=== PATIENT | female | born 1980 | race Caucasian/White ===

== ENCOUNTER → 2018-05-26 | Outpatient (CLI) | payer OTHER ==
--- NOTE | 2018-05-26 13:43 | XR ---
Lumbosacral spine HISTORY: Low back pain 5 views of the lumbosacral spine No comparisons There is a levoscoliosis centered at L3. Posterior lumbar fusion is noted at L4-S1. Laminectomies are present at L5, intervertebral spacing material present at L5-S1. Multilevel spondylosis is present. There is loss of disc height at multiple intervertebral levels. IMPRESSION: Postop changes, degenerative disc disease, scoliosis.
== END | disposition home or self-care (01) ==
LOC: RADXRMAIN 09:53
PROVIDERS: ATTEND Family Medicine
DX: M41.9 Scoliosis, unspecified (principal); M51.36 Other intervertebral disc degeneration, lumbar region
CPT/HCPCS: 72110

== ENCOUNTER → 2018-12-31 | Outpatient (CLI) | payer MEDICARE ==
[2018-12-28 14:47] VITALS: BMI 38.2
[2018-12-31 11:18] VITALS: BP 133/71; PULSE 118; RESP 18
--- NOTE | 2018-12-31 11:47 | P.CONS ---
History of Present Illness - Reason for Consult Consult date: 12/31/18 - Chief Complaint Lower back and legs pain - History of Present Illness This is a 38-year-old lady with history of chronic lower back pain with radiation to the lower extremities down to the knee level. The patient states that her right foot goes numb on her when she stands or walks for too long. The patient had back surgery with L5-S1 fusion in 2009. The back pain has been getting worse lately. By MRI the patient has neural foraminal stenosis on the right side of the L5-S1 level and severe facet arthropathy at the L4 5 level which contributes to bilateral foraminal stenosis at this level too. The patient denies any bowel or bladder dysfunction or any weakness in the lower extremities. The pain occasionally wakes her up at night. There are no significant weight changes lately. The patient failed to respond to physical therapy previously. Review of Systems Cardiovascular: Denies chest pain, Denies shortness of breath Respiratory: Denies cough Musculoskeletal: Reports as per HPI Neurological: Reports as per HPI Past Medical History Past Medical History: Diabetes Mellitus, Hyperlipidemia, Hypertension, Musculoskeletal Disorder, Osteoarthritis (OA) Additional Past Medical History / Comment(s): holter monitor recently due to recent EKG showed sinus tach., bone spur L5, low back pain down both legs History of Any Multi-Drug Resistant Organisms: None Reported Past Surgical History: Adenoidectomy, Appendectomy, Back Surgery, Tonsillectomy Additional Past Surgical History / Comment(s): spinal fusion L5-S1 Past Anesthesia/Blood Transfusion Reactions: Postoperative Nausea & Vomiting (PONV) Smoking Status: Never smoker - Past Family History Mother Family Medical History: No Reported History Medications and Allergies Home Medications Medication Instructions Recorded Confirmed Type Aspirin 81 mg PO DAILY 10/30/18 12/28/18 History Cholecalciferol [Vitamin D3] 2,000 unit PO DAILY 10/30/18 12/28/18 History Cinnamon Bark [Cinnamon] 1,000 mg PO BID 10/30/18 12/28/18 History Cyclobenzaprine [Flexeril] 10 mg PO TID PRN 10/30/18 12/28/18 History Metoprolol Succinate (ER) [Toprol 50 mg PO DAILY 10/30/18 12/28/18 History Xl] Multivit with Calcium,Iron,Min 1 each PO DAILY 10/30/18 12/28/18 History [Women's Multivitamin] Naproxen Sodium [Aleve] 220 mg PO BID PRN 10/30/18 12/28/18 History Potassium Chloride [Klor-Con 20] 40 meq PO TID 10/30/18 12/28/18 History Simvastatin [Zocor] 10 mg PO HS 10/30/18 12/28/18 History Spironolactone [Aldactone] 25 mg PO BID 10/30/18 12/28/18 History Turmeric Root Extract [Turmeric] 500 mg PO DAILY 10/30/18 12/28/18 History metFORMIN HCL [Glucophage] 1,000 mg PO BID 10/30/18 12/28/18 History metFORMIN HCL [Glucophage] 500 mg PO 1200 10/30/18 12/28/18 History Furosemide [Lasix] 20 mg PO DAILY 12/28/18 12/28/18 History Lisinopril [Zestril] 2.5 mg PO DAILY 12/28/18 12/28/18 History Allergies Allergy/AdvReac Type Severity Reaction Status Date / Time sulfamethoxazole Allergy Rash/Hives Verified 12/28/18 14:41 [From Bactrim] trimethoprim [From Bactrim] Allergy Rash/Hives Verified 12/28/18 14:41 Physical Exam Vitals: Vital Signs Pulse Resp BP Pulse Ox 12/31/18 11:12 118 H 18 133/71 99 - Constitutional General appearance: obese - EENT Eyes: PERRLA - Respiratory Respiratory: bilateral: CTA - Cardiovascular Rhythm: regular - Neurologic Neuro exam of the lower extremities showed decreased but symmetrical muscle strength to 4 out of 5 bilaterally. Normal deep tendon reflexes bilaterally. Straight leg raising test negative bilaterally. Billy's test negative bilaterally. She has positive tenderness in the lumbar paravertebral area bilaterally. She has well-healed scar from her previous back surgery about 2 inches in length. Neurologic: CNII-XII intact - Psychiatric Psychiatric: A&O x's 3, appropriate affect, intact judgment & insight Results Results: MRI on the lumbar spine which was done in July 2018 showed right foraminal stenosis with thickened L5 nerve root partially compressed by independence per at the L5-S1 level on the right side and also it showed severe L4 5 facet arthropathy with bilateral foraminal stenosis. Assessment and Plan Plan: This is a pleasant 38-year-old lady with history of failed back surgery syndrome and lower back pain with radiation to the lower extremities down to the knee level and numbness in the right foot. The MRI showed neural foraminal stenosis at the L5-S1 level on the right side and severe facet arthropathy the L4 5 level with bilateral neuroforaminal stenosis at this level. Neuro exam of the lower extremities is within normal limits. The patient has the following diagnoses: Failed back surgery syndrome Lumbar spondylosis without myelopathy Right lumbar radiculopathy Neuro foraminal stenosis The patient may benefit from getting caudal epidural steroid injection with lysis of adhesions under fluoroscopic guidance however this does not help the patient's pain then we might need to try transforaminal epidural steroid injection at the L4 5 and L5-S1 level on the right side. Due to her severe facet arthropathy she might also benefit from getting lumbar medial branch block above the fusion level under fluoroscopic guidance. We will start by doing caudal epidural steroid injection. The procedure was explained to the patient and her questions were answered. The patient is agre eable to the above-mentioned procedure. The patient has history of diabetes but she denies taking any anticoagulants other than aspirin 81 mg a day. I thank you for the referral
== END | disposition home or self-care (01) ==
LOC: PNWHC3 10:36
PROVIDERS: ATTEND Anesthesiology
DX: G89.29 Other chronic pain (principal); M48.07 Spinal stenosis, lumbosacral region; M96.1 Postlaminectomy syndrome, not elsewhere classified; M47.26 Other spondylosis with radiculopathy, lumbar region; M46.86 Other specified inflammatory spondylopathies, lumbar region; E11.9 Type 2 diabetes mellitus without complications; E78.5 Hyperlipidemia, unspecified; I10 Essential (primary) hypertension; M19.90 Unspecified osteoarthritis, unspecified site; Z90.89 Acquired absence of other organs; Z98.890 Other specified postprocedural states; Z79.82 Long term (current) use of aspirin; Z79.84 Long term (current) use of oral hypoglycemic drugs; Z79.1 Long term (current) use of non-steroidal anti-inflammatories (NSAID); Z98.1 Arthrodesis status; Z88.2 Allergy status to sulfonamides; Z79.899 Other long term (current) drug therapy
CPT/HCPCS: 99201

== ENCOUNTER 2019-01-14 08:12 | Day surgery (SDC) | payer MEDICARE ==
[2019-01-11 09:46] VITALS: BMI 38.4
[2019-01-14 09:37] VITALS: TEMP 99.3
[2019-01-14] MEDS: LACTATED RINGERS 1,000 ML IV SCH ×2 (09:50→10:14)
[2019-01-14] MEDS ORDERED: LIDOCAINE 1% 20 ML VIAL (10MG/ML) FOR IV START INTRADERMA ONE (09:51)
[2019-01-14 10:05] LABS: Glucose,Whole Blood 146 mg/dL (75-99)
--- NOTE | 2019-01-14 10:37 | P.PCN ---
Date of Procedure: 01/14/19 Procedure(s) Performed: PREOP DIAGNOSIS: 1- Lumbar postlaminectomy syndrome. POSTOP DIAGNOSIS:1- Lumbar postlaminectomy syndrome. PROCEDURE: 1-Caudal epidural steroid injection with epidurolysis and epidurogram under fluoroscopic guidance. 2-caudal epidurogram. ANESTHESIA: Local with 1% lidocaine 3 ml ,and moderate sedation, with Versed 2 mg and fentanyl 100 g. EBL: Minimal. PROCEDURE INDICATION: The patient with post-laminectomy syndrome with low back pain and radiculopathy radiating down in both legs, here for a caudal epidural steroid injection with epidurolysis. PROCEDURE DESCRIPTION: The patient was seen and identified in the preoperative area. Risks, benefits, complications, and alternatives were discussed with the patient. The patient agreed to proceed with the procedure and signed the consent. IV was started, and vital signs were stable. Patient was taken to the OR and time out was completed. The patient was placed in the prone position on procedure table and a pillow was placed under the abdomen to reduce lumbar lordosis. The lumbosacral area was prepped and draped in the usual sterile fashion. Vital signs were closely monitored during the procedure. lateral view and the anterior-posterior plates of the sacrum were identified with infiltration of the area overlying the sacral hiatus with 1% lidocaine .A 17 gauge RK epidural needle was used to advance through the sacral hiatus into the caudal epidural space. Omnipaque 180 dye. 2cc was injected and the position of the needle was verified to be in the midline. A Racz catheter was introduced into the epidural space and was advanced towards the L5-S1 inte rspace under direct fluoroscopic guidance. Multiple passes were made with the catheter for lysis of epidural adhesions. Depo-Medrol 40 mg with 3ml of preservative free Lidocaine 1% and 5 ml of preser vative free normal saline was injected slowly. Additional spread was seen to L4 under fluoroscopy. The needle and the catheter were withdrawn intact. EPIDUROGRAM: Omnipaque 180 mg dye 2 ml was injected with spread of the dye into the caudal epidural space and with spread cutoff at L5 prior to epidurolysis. Post epidurolysis dye 2 ml was injected and spread was seen to L3-4.There was further spread of the solution together with the dye above the L3 COMPLICATIONS: None. DISPOSITION / PLANS: The patient was placed in a supine position and transferred to the recovery area in a stable condition for observation and was discharged from the recovery room after meeting discharge criteria. Home discharge instructions given to the patient by the staff. The patient was reexamined prior to discharge. The patient will schedule a follow up in the clinic in 2-4 weeks.
[2019-01-14 10:42] VITALS: RESP 18
[2019-01-14] MEDS ORDERED: LACTATED RINGERS 1,000 ML IV ONE (10:55)
[2019-01-14 10:57] VITALS: BP 110/78; PULSE 93
--- NOTE | 2019-01-14 11:28 | FL ---
EXAMINATION TYPE: FL guided pain mgmt statistic DATE OF EXAM: 01/14/2019 HISTORY: Flouroscopy time 7 seconds of fluoroscopy provided. IMPRESSION: 1. Fluoroscopy time.
== END 2019-01-14 11:12 | disposition home or self-care (01) ==
LOC: ORPAIN 08:12
PROVIDERS: ATTEND Specialist
DX: M96.1 Postlaminectomy syndrome, not elsewhere classified (principal); M54.16 Radiculopathy, lumbar region; E11.9 Type 2 diabetes mellitus without complications; Z88.1 Allergy status to other antibiotic agents; Z88.2 Allergy status to sulfonamides
CPT/HCPCS: 81025; 62264; J2250; J1030; J3010; Q9966; C1894; 62323; 99152

== ENCOUNTER 2019-01-28 05:56 | Day surgery (SDC) | payer MEDICARE ==
[2019-01-26 11:32] VITALS: BMI 37.9
[~2019-01-28 05:56] MED LIST: LACTATED RINGERS 1,000 ML IV SCH
[2019-01-28 06:40] VITALS: TEMP 98.1
[2019-01-28] MEDS ORDERED: LIDOCAINE 1% 20 ML VIAL (10MG/ML) FOR IV START INTRADERMA ONE (06:40)
[2019-01-28 06:43] LABS: Glucose,Whole Blood 137 mg/dL (75-99)
--- NOTE | 2019-01-28 07:24 | P.PCN ---
Date of Procedure: 01/28/19 Procedure(s) Performed: PREOP DIAGNOSIS: 1- Lumbar postlaminectomy syndrome. POSTOP DIAGNOSIS:1- Lumbar postlaminectomy syndrome. PROCEDURE: 1-Caudal epidural steroid injection with epidurolysis and epidurogram under fluoroscopic guidance. 2-caudal epidurogram. ANESTHESIA: Local with 1% lidocaine 3 ml ,and moderate sedation, with Versed 2 mg and fentanyl 100 g. EBL: Minimal. PROCEDURE INDICATION: The patient with post-laminectomy syndrome with low back pain and radiculopathy radiating down in both legs, here for a caudal epidural steroid injection with epidurolysis. PROCEDURE DESCRIPTION: The patient was seen and identified in the preoperative area. Risks, benefits, complications, and alternatives were discussed with the patient. The patient agreed to proceed with the procedure and signed the consent. IV was started, and vital signs were stable. Patient was taken to the OR and time out was completed. The patient was placed in the prone position on procedure table and a pillow was placed under the abdomen to reduce lumbar lordosis. The lumbosacral area was prepped and draped in the usual sterile fashion. Vital signs were closely monitored during the procedure. lateral view and the anterior-posterior plates of the sacrum were identified with infiltration of the area overlying the sacral hiatus with 1% lidocaine .A 17 gauge RK epidural needle was used to advance through the sacral hiatus into the caudal epidural space. Omnipaque 180 dye. 2cc was injected and the position of the needle was verified to be in the midline. A Racz catheter was introduced into the epidural space and was advanced towards the L5-S1 int erspace under direct fluoroscopic guidance. Multiple passes were made with the catheter for lysis of epidural adhesions. Depo-Medrol 40 mg with 3ml of preservative free Lidocaine 1% and 5 ml of prese rvative free normal saline was injected slowly. Additional spread was seen to L5 under fluoroscopy. The needle and the catheter were withdrawn intact. EPIDUROGRAM: Omnipaque 180 mg dye 2 ml was injected with spread of the dye into the caudal epidural space and with spread cutoff at L5 prior to epidurolysis. Post epidurolysis dye 2 ml was injected and spread was seen to L3-4.There was further spread of the solution together with the dye above the L3 COMPLICATIONS: None. DISPOSITION / PLANS: The patient was placed in a supine position and transferred to the recovery area in a stable condition for observation and was discharged from the recovery room after meeting discharge criteria. Home discharge instructions given to the patient by the staff. The patient was reexamined prior to discharge. The patient will schedule a follow up in the clinic in 2-4 weeks.
[2019-01-28] MEDS ORDERED: IV FLUID CONTINUATION 1,000 ML IV ONE (07:28)
[2019-01-28 07:39] VITALS: BP 92/68; PULSE 101; RESP 16
--- NOTE | 2019-01-28 10:26 | FL ---
EXAMINATION TYPE: FL guided pain mgmt statistic DATE OF EXAM: 01/28/2019 FLUOROSCOPY Fluoroscopy time of 15 seconds was used during caudal injection. 2 image/s document/s the procedure.
== END 2019-01-28 07:56 | disposition home or self-care (01) ==
LOC: ORPAIN 05:56
PROVIDERS: ATTEND Specialist
DX: M96.1 Postlaminectomy syndrome, not elsewhere classified (principal); M54.16 Radiculopathy, lumbar region
CPT/HCPCS: 81025; 62264; J2250; J1030; J3010; Q9966; 62323; 99152

== ENCOUNTER → 2019-02-18 | Outpatient (CLI) | payer MEDICARE ==
[2019-02-18 12:38] VITALS: BP 120/88; PULSE 126; RESP 16
--- NOTE | 2019-02-18 13:25 | P.PN ---
Progress Note - Text Progress Note Date: 02/18/19 This a 38-year-old female with a chief complaint of low back pain and radicular pain in her right lower extremity. Since her initial visit she had 2 caudal epidurals with lysis of adhesion area she did not report any relief from those procedures. She still has persistent low back pain, numbness and tingling in her right foot mostly on the plantar aspect. She does report some weakness in her right lower extremity as well that is stable and not progressing. She had a L5-S1 fusion done in 2009 in [place], she's followed up with that surgeon last month and has a follow-up appointment to be determined in the next few weeks. She had flexion extension x-rays and did not have any hardware malposition or pseudoarthrosis. Her VAS today is a 4-6 out of 10 in severity mostly in her low back with frequent radicular pain into her right lower extremity. She denies any bowel or bladder incontinence, any gait disturbances In addition to above, 13-point review of systems is also negative for chest pain, shortness of breath, changes in vision, changes in hearing, new onset weakness, abdominal pain, diarrhea, extreme fatigue, malaise, fever, skin changes, homicidal or suicidal ideation, or bowel or bladder incontinence. Vital Signs: Reviewed in EMR Gen: WDWN, AAOx3, NAD HEENT: NCAT, EOMI, hearing grossly normal Pulm: resp unlabored Abd: soft, NT, ND Neck: supple, trachea midline ROM in flexion lumbar spine: Pain and 60 ROM in extension lumbar spine: Pain at greater than -10 Lumbar paravertebral tenderness: + Facet loading: ++ bilateral SI joint tenderness: Negative bilateral Billy's test: Negative by the Straight leg raise: +RLE 20 degrees Lower extremity: decreased ROM dorsiflexion/plantarflexion strength, hip flexion/extension, and knee flexion/extension secondary to pain Neuro: CN II-XII grossly intact, muscle strength lower extremities PRESERVED Imaging: MRI on the lumbar spine which was done in July 2018 showed right foraminal stenosis with compressed L5 nerve root, and also it showed severe L3- L4, L4-5 facet arthropathy with bilateral foraminal stenosis. Assessment: 1. Lumbar failed back syndrome 2. lumbar radiculopathy 3. lumbar spondylosis without myelopathy Plan: 1. Explanation: Opioid and psychological risk scores were reviewed. Diagnoses, prognoses, and multiple treatment options including but not limited to physical therapy, interventional therapies, adjuvant medical therapies, narcotic medication therapies, and surgery were discussed with the patient and all questions were answered to the patient's satisfaction. 2. Opioid agreement: None 3. Counseling: The patient was counseled extensively on SMOKING CESSATION, BODY MASS INDEX, EXERCISE. Specifically, the patient was instructed regarding the importance of smoking cessation, obesity, and exercise in the context of both chronic pain and overall health. 4. Procedures: Bilateral L3-L4, L4-L5 facet joint injections. 5. Consultations: None 6. Investigations: None 7. Medications: None 8. Disposition: I reviewed her most recent MRI in detail with her. She does have severe facet arthropathy at L3-L4 and L4-L5 could be contributing to her low back pain. She had no relief with the caudal epidurals even her MRI shows severe impingement of the L5 nerve root. She had an EMG done back in November we do not have the results with us she was told it was normal. She is going to follow up with her neurosurgeon in [place] and will let us know what he recommends. If she is unable to get in to see him, I did discuss that I could refer to a spine surgeon For evaluation PQRS measures: 1-Patient's medications are documented in the chart. 2-Tobacco use is negative, counseling not given 3-Patient has not had a pneumococcal vaccine. 4-Advanced care planning discussed, patient unable to give. 5-Opioid contract signed with the patient. No opiates prescribed 6-Pain positive, follow-up visit or procedure scheduled 7-Patient's blood pressure measured and documented, and WNL. 8-Patient's weight was measured, and body mass index ABOVE the normal limits, and counseling was done. Patient instructed to follow up with PCP. 9-Patient WAS NOT identified as an unhealthy alcohol user.
== END ==
LOC: PNWHC3 12:09
PROVIDERS: ATTEND Anesthesiology
DX: M47.26 Other spondylosis with radiculopathy, lumbar region (principal); M96.1 Postlaminectomy syndrome, not elsewhere classified
CPT/HCPCS: 99211

== ENCOUNTER 2019-03-15 08:21 | Day surgery (SDC) | payer MEDICARE ==
[2019-03-10 15:16] VITALS: BMI 38.2
[2019-03-15 08:40] VITALS: TEMP 99.7
[2019-03-15] MEDS ORDERED: LIDOCAINE 1% 20 ML VIAL (10MG/ML) FOR IV START INTRADERMA ONE (08:50)
[2019-03-15] MEDS ORDERED: LACTATED RINGERS 1,000 ML IV ONE (08:50)
[2019-03-15 09:05] LABS: Glucose,Whole Blood 156 mg/dL (75-99)
--- NOTE | 2019-03-15 10:05 | P.PCN ---
Date of Procedure: 03/15/19 Surgeon: Saadia Salgado Pathology: none sent Condition: stable Disposition: PACU Description of Procedure: PREOPERATIVE DIAGNOSIS : 1- Lumbar spondylosis with Facet Arthropathy without myelopathy . 2- Lumber degenerative disc disease3-postlaminectomy pain syndrome POSTOPERATIVE DIAGNOSIS: 1- Lumbar spondylosis with Facet Arthropathy without myelopathy . 2- Lumber degenerative disc disease3-postlaminectomy pain syndrome PROCEDURE: Diagnostic bilateral L2 3, L3 4, and L4 5 medial branch block under fluoroscopy ANESTHESIA: Local with 1% lidocaine; IV moderate conscious sedation with Versed 2 mg . EBL: Negligible COMPLICATION: None. PROCEDURE INDICATION: Chronic low back pain secondary to Facet arthropathy and postlaminectomy pain syndrome unresponsive to conservative treatment. The procedure was done above her fusion level which is at the L4 5 and L5-S1 levels. PROCEDURE DESCRIPTION: the patient was seen and identified in the preop holding area , risks and benefits and possible complications of the procedure and alternatives were discussed with the patient, and the patient agreed to proceed with the procedure and signed the consent. IV was started and vital signs monitored during the procedure and fluoroscopy was used to maximize the benefit and accuracy of the needle placement, sedation was given to decrease patient anxiety, patient was taken to the procedure room and placed in prone position vital signs monitored. The patient was brought into the procedure room and placed in prone position. Skin was prepped with Chloraprep and draped in a sterile manner. Lidocaine 1% was used to numb the skin up at the target points that were chosen as follows: for the L1, L2 and L3 medial branches the target points were the connection between the transverse process and the superior to go process of L2, L3 and L4 respectively on the oblique views of fluoroscopy. I used 22-gauge 3-1/2 inch Quincke spinal needles for this procedure and after contacting bone at the target points mentioned above I injected 1 mL of a mixture of Kenalog 40 mg +5 MLS of Marcaine 0.5% PF . Patient tolerated procedure well. At the end of the procedure the needles removed and a bandage applied after the skin was cleaned the cleaning solution. patient was then taken to the recovery room in stable condition and monitored in the recovery room for 20-30 minutes and discharged home in stable condition after discharge criteria met .
[2019-03-15] MEDS ORDERED: IV FLUID CONTINUATION 1,000 ML IV ONE ×2 (10:07)
[2019-03-15 10:12] VITALS: PULSE 97
--- NOTE | 2019-03-15 10:14 | FL ---
EXAMINATION TYPE: FL guided pain mgmt statistic DATE OF EXAM: 03/15/2019 CLINICAL HISTORY: Low back pain. TECHNIQUE: Fluoroscopy. COMPARISON: None. FINDINGS: Fluoroscopic guidance was provided during pain relief procedure performed by Dr. Salgado . A total of 8 seconds of fluoroscopic time was utilized during the procedure and 3 spot images are a cquired. Images acquired shows needle localization at multiple levels of the lumbar spine. IMPRESSION: As Above.
[2019-03-15 10:27] VITALS: BP 104/72; RESP 18
[2019-03-15] MEDS ORDERED: LACTATED RINGERS 1,000 ML IV SCH (10:45)
== END 2019-03-15 10:35 | disposition home or self-care (01) ==
LOC: ORPAIN 08:21
PROVIDERS: ATTEND Anesthesiology
DX: G89.29 Other chronic pain (principal); M47.816 Spondylosis without myelopathy or radiculopathy, lumbar region; M51.36 Other intervertebral disc degeneration, lumbar region; M96.1 Postlaminectomy syndrome, not elsewhere classified; Z88.2 Allergy status to sulfonamides; E66.9 Obesity, unspecified; Z68.38 Body mass index [BMI] 38.0-38.9, adult; E11.9 Type 2 diabetes mellitus without complications
CPT/HCPCS: 81025; 64493; 64494; 64495; J2250; J3301; 99152

== ENCOUNTER 2019-04-06 09:32 | Day surgery (SDC) | payer MEDICARE ==
[2019-03-31 15:17] VITALS: BMI 38.2
[2019-04-06 10:01] VITALS: RESP 18; TEMP 98.6
[2019-04-06] MEDS ORDERED: LACTATED RINGERS 1,000 ML IV ONE (10:03)
[2019-04-06] MEDS ORDERED: LIDOCAINE 1% 20 ML VIAL (10MG/ML) FOR IV START INTRADERMA ONE (10:03)
[2019-04-06 10:07] LABS: Glucose,Whole Blood 127 mg/dL (75-99)
[2019-04-06] MEDS ORDERED: LACTATED RINGERS 1,000 ML IV SCH (10:13)
--- NOTE | 2019-04-06 11:24 | P.PCN ---
Date of Procedure: 04/06/19 Procedure(s) Performed: PREOPERATIVE DIAGNOSIS : 1- Lumbar spondylosis with Facet Arthropathy without myelopathy . 2- Lumber degenerative disc disease POSTOPERATIVE DIAGNOSIS: 1- Lumbar spondylosis with Facet Arthropathy without myelopathy . 2- Lumber degenerative disc disease PROCEDURE: Diagnostic bilateral L2-3 , L3 -4 , L4 -5 , medial branch block under fluoroscopy ANESTHESIA: Local with Ropivacain 0.5 % 6 ml , moderate sedation with intravenous Versed 2 mg . EBL: Minimal COMPLICATION: None. IV FLUIDS: 100 mL of normal saline. PROCEDURE INDICATION: Chronic low back pain secondary to Facet arthropathy unresponsive to conservative treatment. PROCEDURE DESCRIPTION: the patient was seen and identified in the preop holding area , risks and benefits and possible complications of the procedure and alternative were discussed with the patient, and the patient agreed to proceed with the procedure and signed the consent IV was started and vital signs monitored during the procedure and fluoroscopy was used to maximize the benefit and accuracy of the needle placement, and sedation was given to decrease patient anxiety, patient was taken to the procedure room and placed in prone position vital signs monitored in the back prepped with chlorhexidine X3 then under strict sterile technique using a right oblique fluoroscopy ,the junction of the transverse process and the superior articulating process of the right L2-3 L3- 4 , L4- 5, vertebra which corresponding to the fluoroscopy image of the eye of the Sourav dog on the block side for the medial branches and subsequently , after local infiltration of skin and subcu tissuies with Ropivacaine 0.5 % , one mL at each level ,then 22-gauge Quincke-type needles , 3 needle was used , each one of them placed at the junction of the base of the transverse process and the superior articular process at the appropriate level, and the needle was advanced until the periosteum contacted, needle placement confirmed with AP oblique and lateral view and after appropriate needle placement confirmed, and after negative aspiration for heme and CSF and there was no paresthesia 1-1/2 mL of Ropivacaine 0.5% mixed with 20 mg Depo-Medrol , then half mL injected at each level after negative aspiration the needle subsequently removed and the same procedure repeated for the left side at left side at L2-3 , L3-4, L4- 5 levels. At the end of the procedure and the needles removed and a bandage applied after the skin was cleaned the cleaning solution patient taken to recovery room in stable condition and monitors in the recovery room for 20-30 minutes and discharged home in stable condition after discharge criteria met and patient will follow up with the pain clinic in 2-4 weeks Note= patient had lumbar fusion at L4 5 and L5-S1,and the diagnostic medial branch block at the leveles above the fusion
[2019-04-06] MEDS ORDERED: IV FLUID CONTINUATION 700 ML IV ONE (11:30)
--- NOTE | 2019-04-06 11:40 | FL ---
EXAMINATION TYPE: FL guided pain mgmt statistic DATE OF EXAM: 04/06/2019 HISTORY: Flouroscopy time 25 seconds of fluoroscopy provided. IMPRESSION: 1. Fluoroscopy time.
[2019-04-06 11:46] VITALS: BP 108/73; PULSE 93
== END 2019-04-06 12:01 | disposition home or self-care (01) ==
LOC: ORPAIN 09:32
PROVIDERS: ATTEND Specialist
DX: M47.816 Spondylosis without myelopathy or radiculopathy, lumbar region (principal); M51.36 Other intervertebral disc degeneration, lumbar region; G89.29 Other chronic pain; Z88.2 Allergy status to sulfonamides
CPT/HCPCS: 81025; 64493; 64494; 64495; J2250; J1030; 99152

== ENCOUNTER → 2019-04-22 | Outpatient (CLI) | payer MEDICARE ==
[2019-04-22 13:48] VITALS: BP 131/77; PULSE 108; RESP 16
--- NOTE | 2019-04-23 13:20 | P.PAINPG ---
Subjective Progress Note Date: 04/22/19 This a 38-year-old female with a chief complaint of low back pain radiating to right lower extremity. She underwent bilateral diagnostic medial branch blocks at L2-3, L 34 and L 45. She reports that her pain score went down from 5-0 following both procedures. She would like to proceed with radiofrequency ablation. She denies any bowel or bladder incontinence, any gait disturbances In addition to above, 13-point review of systems is also negative for chest pain, shortness of breath, changes in vision, changes in hearing, new onset weakness, abdominal pain, diarrhea, extreme fatigue, malaise, fever, skin changes, homicidal or suicidal ideation, or bowel or bladder incontinence. Vital Signs: Reviewed in EMR Gen: WDWN, AAOx3, NAD HEENT: NCAT, EOMI, hearing grossly normal Pulm: resp unlabored Abd: Nondistended Neck: supple, trachea midline ROM in flexion lumbar spine: Pain at 60 ROM in extension lumbar spine: Pain at greater than -10 Lumbar paravertebral tenderness: + Facet loading: ++ bilateral SI joint tenderness: Negative bilateral Billy's test: Negative bilaterally Straight leg raise: Negative bilaterally Lower extremity: Full ROM dorsiflexion/plantarflexion strength, hip flexion/extension, and knee flexion/extension Neuro: CN II-XII grossly intact, muscle strength lower extremities PRESERVED Imaging: MRI on the lumbar spine which was done in July 2018 showed right foraminal stenosis with compressed L5 nerve root, and also it showed severe L3- L4, L4-5 facet arthropathy with bilateral foraminal stenosis. Assessment: 1. Lumbar failed back syndrome 2. lumbar radiculopathy 3. lumbar spondylosis without myelopathy Plan: 1. Explanation: Opioid and psychological risk scores were reviewed. Diagnoses, prognoses, and multiple treatment options including but not limited to physical therapy, interventional therapies, adjuvant medical therapies, narcotic medication therapies, and surgery were discussed with the patient and all questions were answered to the patient's satisfaction. 2. Opioid agreement: None 3. Counseling: The patient was counseled extensively on BODY MASS INDEX, EXERCISE. Specifically, the patient was instructed regarding the importance of obesity, and exercise in the context of both chronic pain and overall health. 4. Procedures: Left side lumbar radiofrequency ablation to be scheduled 5. Consultations: Following bilateral radiofrequency ablation, would refer the patient to physical therapy for lumbar stretching, strengthening, core strengthening exercises 6. Investigations: None 7. Medications: None 8. Disposition: For above-mentioned procedure Objective - Vital Signs Vital signs: Vital Signs Temp Pulse 108 H 04/22/19 13:42 Resp 16 04/22/19 13:42 BP 131/77 04/22/19 13:42 Pulse Ox 98 04/22/19 13:42 Intake & Output 04/22/19 04/23/19 04/23/19 18:59 06:59 18:59 Weight 107.501 kg PQRS Measure Charge Sheet Measure #130: Documentation of Current Meds in Medical Chart: Patient's medications documented in chart Measure #226: Tobacco Use: Screen & Cessation Intervention: Pt not a tobacco user Measure #111: Pneumonia Vaccination: Pneumococcal vaccine NOT administered or previously given Measure #47: Advance Care Plan: Advance care planning discussed & documented, pt chose/unable to give Measure #412: Opioid Treatment Agreement: No documentation of signed opioid treatment agreement Measure #408: Opioid Therapy Follow-up Evaluation: Patient had NO f/u eval minimum every 3 months during opioid therapy Measure #317: Preventitive Care & Scrn High Bld Press & F/U: Normal blood pressure, f/u not required Measure #128: Body Mass Index (BMI) Screening & Follow-up: BMI documented ABOVE normal parameters - f/u documented Measure #131: Pain Assessment & Follow-up: Pain positive & plan documented, Follow-up scheduled Measure #431: Unhealthy Alcohol Use Preventative Care & Scrn: Patient not identified as an unhealthy alcohol user PQRS Narrative: Smoking Status Never smoker Blood Pressure 131/77 Pain Intensity [Lower Back] 4 Scale Used Numeric (1 - 10) Hx Alcohol Use (MH) No Home Medications: Ambulatory Orders Aspirin 81 mg PO DAILY 10/30/18 Cholecalciferol [Vitamin D3] 2,000 unit PO DAILY 10/30/18 Cinnamon Bark [Cinnamon] 2,000 mg PO DAILY 10/30/18 Cyclobenzaprine [Flexeril] 10 mg PO TID PRN 10/30/18 Metoprolol Succinate (ER) [Toprol Xl] 50 mg PO DAILY 10/30/18 Multivit with Calcium,Iron,Min [Women's Multivitamin] 1 each PO DAILY 10/30/18 Naproxen Sodium [Aleve] 220 mg PO BID PRN 10/30/18 Potassium Chloride [Klor-Con 20] 40 meq PO TID 10/30/18 Simvastatin [Zocor] 10 mg PO HS 10/30/18 Spironolactone [Aldactone] 25 mg PO BID 10/30/18 Turmeric Root Extract [Turmeric] 500 mg PO DAILY 10/30/18 metFORMIN HCL [Glucophage] 1,000 mg PO BID 10/30/18 metFORMIN HCL [Glucophage] 500 mg PO 1200 10/30/18 Furosemide [Lasix] 20 mg PO DAILY 12/28/18 Lisinopril [Zestril] 2.5 mg PO DAILY 12/28/18 [place]-3 Fatty Acids/Fish Oil [[place]-3 Fish Oil 1,200 mg Sfgl] 1 each PO DAILY 03/10/19 Controlled Substance Measures - Controlled Substance Measures Is patient prescribed a controlled substance at discharge?: No
== END | disposition home or self-care (01) ==
LOC: PNWHC3 12:30
PROVIDERS: ATTEND Anesthesiology
DX: M96.1 Postlaminectomy syndrome, not elsewhere classified (principal); M47.26 Other spondylosis with radiculopathy, lumbar region; Z79.82 Long term (current) use of aspirin; Z79.1 Long term (current) use of non-steroidal anti-inflammatories (NSAID); Z79.84 Long term (current) use of oral hypoglycemic drugs; Z79.899 Other long term (current) drug therapy
CPT/HCPCS: 99211

== ENCOUNTER 2019-05-04 08:44 | Day surgery (SDC) | payer MEDICARE ==
[2019-04-29 11:15] VITALS: BMI 38.2
[2019-05-04] MEDS ORDERED: LACTATED RINGERS 1,000 ML IV ONE (09:08)
[2019-05-04 09:09] VITALS: TEMP 97.4
[2019-05-04] MEDS ORDERED: LIDOCAINE 1% 20 ML VIAL (10MG/ML) FOR IV START INTRADERMA ONE (09:09)
[2019-05-04 09:20] LABS: Glucose,Whole Blood 141 mg/dL (75-99)
--- NOTE | 2019-05-04 09:55 | P.PCN ---
Date of Procedure: 05/04/19 Surgeon: Saadia Salgado Pathology: none sent Condition: stable Disposition: PACU Description of Procedure: PREOPERATIVE DIAGNOSIS: Lumbar spondylosis without myelopathy, morbid obesity, lumbar post laminectomy and fusion pain syndrome POSTOPERATIVE DIAGNOSIS: Lumbar spondylosis without myelopathy,morbid obesity, lumbar postlaminectomy and fusion pain syndrome PROCEDURES : Left lumbar Radiofrequency thermocoagulation at L2-L3, L3 4, and L4 5 medial branch, with fluoroscopic guidance ANESTHESIA: IV moderate conscious sedation with versed and fentanyl and local infiltration with lidocaine 1% 5 ml EBL: Minimal PROCEDURE INDICATION: The patient with low back pain secondary to lumbar facet arthropathy who had more than 50% relief of her pain with previous diagnostic lumbar medial branch block with bupivacaine. PROCEDURE DESCRIPTION / TECHNIQUE: The patient was seen and identified in the preoperative area. Risks, benefits, complications, including but not limited to risk of infection ,bleeding , allergic reactions to the medications and no complete pain relief , and alternatives were discussed with the patient, the patient agreed to proceed with the procedure and signed the consent. IV was started. Vital signs remained stable throughout the procedure. Patient was taken to the OR and time out was completed. The patient was placed in the prone position on the procedure table. The lumber area was prepped and draped in the usual sterile fashion. . Vital signs were closely monitored during the procedure .IV sedation was used during the procedure to decrease patients anxiety. The target points were identified as follows: For the L2, L3, and L4 medial branches the target points were at the connection between the transverse process and the superior articular process of L3, L4, and L5 vertebra respectively on the left oblique view of fluoroscopy. skin was marked, and localized with 1% lidocaineat these points. Subsequently, an 18 -xm radiofrequency needles with a 10-mm curved active tips were advanced guided by fluoroscopy to each of the target points mentioned above in a superior medial direction to get the active tips as parallel as possible to the medial branches tracks. AP, oblique, and lateral views of fluoroscopy were used to verify needle tips position. Each level then underwent motor testing at 2.5 Hz and 0 to 3 volt with local stimulation, but no radicular symptoms down the legs. Thereafter radiofrequency thermocoagulation at 80 degrees celsius for 90 seconds after injecting 1 ml of PF Marcaine 0.5%(3 mls) with 20 mg of Kenalog. At the end of the procedure, the skin was cleansed and bandages were applied. COMPLICATIONS: No acute complications. DISPOSITION / PLANS: The patient was placed in a supine position and transferred to the recovery area in a stable condition for observation and was discharged from the recovery room after meeting discharge criteria. Home discharge instructions given to the patient by the staff. The patient was reexamined prior to discharge. The patient will schedule a follow up in the clinic in 2-4 weeks.
[2019-05-04 10:04] LABS: Glucose,Whole Blood 141 mg/dL (75-99)
[2019-05-04 10:20] VITALS: BP 106/72; PULSE 86; RESP 16
[2019-05-04] MEDS ORDERED: IV FLUID CONTINUATION 1,000 ML IV ONE (10:25)
--- NOTE | 2019-05-04 10:32 | FL ---
EXAMINATION TYPE: FL guided pain mgmt statistic DATE OF EXAM: 05/04/2019 CLINICAL HISTORY: Low back pain. TECHNIQUE: Fluoroscopy. COMPARISON: None. FINDINGS: Fluoroscopic guidance was provided during pain relief procedure performed by Dr. Salgado . A total of 10 seconds of fluoroscopic time was utilized during the procedure and 3 spot images are acquired. Images acquired shows needle localization at multiple levels in the lumbar spine. IMPRESSION: As Above.
== END 2019-05-04 10:29 | disposition home or self-care (01) ==
LOC: ORPAIN 08:44
PROVIDERS: ATTEND Anesthesiology
DX: M47.26 Other spondylosis with radiculopathy, lumbar region (principal); M96.1 Postlaminectomy syndrome, not elsewhere classified; I10 Essential (primary) hypertension; E11.9 Type 2 diabetes mellitus without complications; E66.01 Morbid (severe) obesity due to excess calories; Z88.2 Allergy status to sulfonamides; Z79.82 Long term (current) use of aspirin; Z79.84 Long term (current) use of oral hypoglycemic drugs; Z79.899 Other long term (current) drug therapy; Z68.38 Body mass index [BMI] 38.0-38.9, adult; Z98.1 Arthrodesis status
CPT/HCPCS: 64636 ×2; 81025; 64635; J2250; J3301; J3010; 99152

== ENCOUNTER 2019-05-18 08:53 | Day surgery (SDC) | payer MEDICARE ==
[2019-05-12 15:15] VITALS: BMI 38.7
[2019-05-18] MEDS ORDERED: LACTATED RINGERS 1,000 ML IV ONE (09:46)
[2019-05-18] MEDS ORDERED: LIDOCAINE 1% 20 ML VIAL (10MG/ML) FOR IV START INTRADERMA ONE (09:46)
[2019-05-18 09:53] VITALS: TEMP 97.8
[2019-05-18 09:57] LABS: Glucose,Whole Blood 130 mg/dL (75-99)
--- NOTE | 2019-05-18 11:23 | P.PCN ---
Date of Procedure: 05/18/19 Procedure(s) Performed: PREOPERATIVE DIAGNOSIS: 1-Lumbar Spondylosis with Facet Arthropathy without myelopathy. POSTOPERATIVE DIAGNOSIS: 1- Lumbar Spondylosis with Facet Arthropathy without myelopathy. PROCEDURES : Right Radiofrequency thermocoagulation L2-3 , L3-L4, L4-L5, medial branch, with fluoroscopic guidance (fluoroscopy images available in the radiology department) ANESTHESIA: Moderate sedation with intravenous versed 2 mg and fentaneyl 100 mcg, and local infiltration with Ropivacaine 0.5 % . EBL: Minimal PROCEDURE INDICATION: The patient with low back pain secondary to lumbar facet arthropathy who had more than 50% relief of her pain with previous diagnostic lumbar medial branch block with bupivacaine. PROCEDURE DESCRIPTION / TECHNIQUE: The patient was seen and identified in the preoperative area. Risks, benefits, complications, including but not limited to risk of infection ,bleeding , allergic reactions to the medications and no complete pain releife , and alternatives were discussed with the patient, the patient agreed to proceed with the procedure and signed the consent. IV was started. Vital signs remained stable throughout the procedure. Patient was taken to the OR and time out was completed. The patient was placed in the prone position on the procedure table. The lumber area was prepped and draped in the usual sterile fashion. . Vital signs were closely monitored during the procedure .IV sedation was used during the procedure to decrease patients anxiety. Using AP and then oblique fluoroscopy, the ``eye of the Sourav dog corresponding to the connection between the superior and transverse articular processes of right L2 , L3, L4, were identified, marked, and localized with 1% lidocaine. Subsequently, a [id number] radiofrequency cannula with a 10-mm active tip was advanced guided by fluoroscopy to each of the``eyes of the Sourav dog at right L2 , L3, L4, Each site then underwent sensory testing at 50 Hz and 0 to 1 volt and motor testing at 2.5 Hz and 0 to 3 volt with local stimulation, but no radicular symptoms down the legs. Thereafter the right L2- 3 , L3-4, L4-5, sites underwent radiofrequency thermocoagulation at 80 degrees celsius for 90 seconds after injecting 0.5 ml of PF Ropivacaine 1ml, then after the thermocoagulation done , 1 ml of the block solution containing Depo-Medrol 40 mg and 3 ml of Ropivacaine 0.5% was injected at the right L2-3 ,L3-4 , L4- 5 , levels after negative aspiration of CSF and blood and with no paresthesias. Cannulas were retracted while injecting lidocaine 1% until the needle is out At the end of the procedure, the skin was cleansed and bandages were applied. COMPLICATIONS: No acute complications. DISPOSITION / PLANS: The patient was placed in a supine position and transferred to the recovery area in a stable condition for observation and was discharged from the recovery room after meeting discharge criteria. Home discharge instructions given to the patient by the staff. The patient was reexamined prior to discharge. The patient will schedule a follow up in the clinic in 2-4 weeks.
--- NOTE | 2019-05-18 11:33 | FL ---
EXAMINATION TYPE: FL guided pain mgmt statistic DATE OF EXAM: 05/18/2019 CLINICAL HISTORY: Low back pain. TECHNIQUE: Fluoroscopy. COMPARISON: None. FINDINGS: Fluoroscopic guidance was provided during pain relief procedure performed by Dr. Weldon . A total of 10 seconds of fluoroscopic time was utilized during the procedure and 3 spot images are acquired. Images acquired shows needle localization at multiple levels in the lumbar spine. IMPRESSION: As Above.
[2019-05-18 11:34] VITALS: RESP 16
[2019-05-18 11:47] VITALS: BP 127/88; PULSE 98
== END 2019-05-18 12:00 | disposition home or self-care (01) ==
LOC: ORPAIN 08:53
PROVIDERS: ATTEND Specialist
DX: M47.816 Spondylosis without myelopathy or radiculopathy, lumbar region (principal); E11.9 Type 2 diabetes mellitus without complications
CPT/HCPCS: 64635; 64636 ×2; 81025; J2250; J1030; J3010; 99152

== ENCOUNTER → 2019-06-08 | Outpatient (CLI) | payer MEDICARE ==
[2019-06-08 12:58] VITALS: PULSE 132; RESP 18
--- NOTE | 2019-06-08 13:29 | P.PN ---
Subjective Progress Note Date: 06/08/19 This is a follow-up visit for this 38 years old female with a chronic history of severe low back pain, patient diagnosed with postlaminectomy pain syndrome lumbar area and lumbar spondylosis with lumbar facet arthropathy, previously we have done: Epidural steroid injection with lysis of epidural adhesions patient had minimal benefit from it, and recently we did diagnostic medial branch block ,which was successful ,and later on, followed with radiofrequency ablation, of the median branch lumbar area (above the fusion level ), patient here for follow-up visit and she reported that her pain improved significantly after the radiofrequency, she denies any motor or sensory deficit, she denies any fever or night sweats and she reported that the interventional pain management help her low back pain significantly, she uses naproxen to 20 mg twice a day when necessary Objective - Vital Signs Vital signs: Vital Signs Temp Pulse 132 H 06/08/19 12:51 Resp 18 06/08/19 12:51 BP Pulse Ox 97 06/08/19 12:51 Intake & Output 06/07/19 06/08/19 06/08/19 18:59 06:59 18:59 Weight 109.769 kg - Exam Physical Examinations : -Constitutiona : Cooperative , not in acute distress . -HEENT : nech : supple , no Lymphadenopathy , normal thyroid size . eyes : no ptosis , no icterus, no photophobia . ENT : normal of hearing , normal oropharynx , no Thrush . . - neurologic : Cranial nerve II to XII intact , no focal neurological deffecit . -psychatric : alert , oriented X 3 , appropriate affect , intact judgment and insight . -Lymphatic : no Lymphadenopathy . - musculoskeltal : Lumber spine moter stegnth lower extremities ,thigh and legs 5/5 Right side , 5/5 Left side Assessment and Plan Plan: Assessment and plan= chronic low back pain secondary to failed back surgery syndrome number , lumbar spondylosis with lumbar facet arthropathy . Patient improved after radiofrequency ablation of the medial branch lumbar area. Patient will follow up in the pain clinic when necessary - PQRS measures = - Patient's medications are documented in the chart. -Tobacco use is negative and counseling.Given. -Patient's has not received pneumococcal vaccine. -Advanced care planning discussed, patient not eligible. -Opiate contract not signed. -Pain negative, and she will follow up when necessary. -Patient's blood pressure measured [131/82 ] , and documented in the record ,and patient will follow up with the primary care. -Patient's weight was measured and body mass index [39.1] above the normal limits and counseling was done. and patient instructed to follow-up with the primary care physician. -Patient was not identified as an unhealthy alcohol user Time with Patient: Less than 30
== END | disposition home or self-care (01) ==
LOC: PNWHC3 12:44
PROVIDERS: ATTEND Specialist
DX: M96.1 Postlaminectomy syndrome, not elsewhere classified (principal); G89.29 Other chronic pain; M47.816 Spondylosis without myelopathy or radiculopathy, lumbar region; M46.96 Unspecified inflammatory spondylopathy, lumbar region; Z79.891 Long term (current) use of opiate analgesic
CPT/HCPCS: 99211

== ENCOUNTER → 2020-03-29 | Outpatient (CLI) | payer MEDICARE ==
[2020-03-29 12:45] VITALS: BP 136/87; PULSE 94; RESP 16
--- NOTE | 2020-03-29 12:58 | P.PAINPG ---
Subjective Progress Note Date: 03/29/20 This is a follow-up visit for this 39 years old female with a chronic history of severe low back pain, patient diagnosed with postlaminectomy pain syndrome lumbar area ,and lumbar spondylosis with lumbar facet arthropathy, last year we have done radiofrequency ablations of the median branch lumbar area (above the fusion level ), she had excellent pain relief for more than 6 months, the pain came back and she is currently having severe low back pain, and the pain interfere with her quality of life and interfere with her ability to do activities of daily livings, she denies any motor or sensory deficit, she denies any fever or night sweats Objective - Vital Signs Vital signs: Vital Signs Temp Pulse 94 03/29/20 12:40 Resp 16 03/29/20 12:40 BP 136/87 03/29/20 12:40 Pulse Ox 98 03/29/20 12:40 - Exam Physical Examinations : -Constitutiona : Cooperative , not in acute distress . -HEENT : nech : supple , no Lymphadenopathy , normal thyroid size . : eyes : no ptosis , no icterus, no photophobia . - neurologic : Cranial nerve II to XII intact , no focal neurological deffecit . -psychatric : alert , oriented X 3 , appropriate affect , intact judgment and insight . -Lymphatic : no Lymphadenopathy . - musculoskeltal : . Lumber spine moter stegnth lower extremities ,thigh and legs 5/5 Right side , 5/5 Left side deep tendon reflexes : normal Knee Jerk , normal ankle Jerk lumber facet Loading Test =positive Right , positive Left Range of motion of the lumbar spine Flexion 30 degrees, extension 10 degrees strait leg raising test = positive at 30 degree on the left side and is negative on the right side Fabere test= negative Right , and positive LT . Assessment and Plan Plan: Patient had a new MRI of the lumbar spine done recently and it showed that she had multilevel lumbar facet arthropathy and history of previous lumbar laminectomy surgery Assessment and plan=1-lumbar spondylosis with lumbar facet arthropathy without adenopathy. 2-previous lumbar laminectomy and fusion at L5-S1 Patient had excellent pain relief after RFA of the medial branch lumbar area done in May 2019 , she could benefit from repeat RFA Patient will be scheduled to have bilateral medial branch RFA at L2, L3, L4 ( to target L3-4, L4-5 facet ) bilaterally Time with Patient: Less than 30 PQRS Measure Charge Sheet Measure #130: Documentation of Current Meds in Medical Chart: Patient's medications documented in chart Measure #226: Tobacco Use: Screen & Cessation Intervention: Pt not a tobacco user Measure #111: Pneumonia Vaccination: Pneumococcal vaccine NOT administered or previously given Measure #47: Advance Care Plan: Advance care planning discussed & documented, pt chose/unable to give Measure #412: Opioid Treatment Agreement: No documentation of signed opioid treatment agreement Measure #408: Opioid Therapy Follow-up Evaluation: Patient had NO f/u eval minimum every 3 months during opioid therapy Measure #317: Preventitive Care & Scrn High Bld Press & F/U: Normal blood pressure, f/u not required Measure #128: Body Mass Index (BMI) Screening & Follow-up: BMI documented ABOVE normal parameters - f/u documented Measure #131: Pain Assessment & Follow-up: Pain positive & plan documented, Follow-up scheduled Measure #431: Unhealthy Alcohol Use Preventative Care & Scrn: Patient not identified as an unhealthy alcohol user PQRS Narrative: Smoking Status Never smoker Blood Pressure 136/87 Pain Intensity [Lower Back] 4 Scale Used Numeric (1 - 10) Hx Alcohol Use (MH) No Home Medications: Ambulatory Orders Aspirin 81 mg PO DAILY 10/30/18 Cholecalciferol [Vitamin D3] 2,000 unit PO DAILY 10/30/18 Cinnamon Bark [Cinnamon] 2,000 mg PO DAILY 10/30/18 Metoprolol Succinate (ER) [Toprol Xl] 50 mg PO DAILY 10/30/18 Multivit with Calcium,Iron,Min [Women's Multivitamin] 1 each PO DAILY 10/30/18 Naproxen Sodium [Aleve] 220 mg PO BID PRN 10/30/18 Potassium Chloride [Klor-Con 20] 40 meq PO TID 10/30/18 Simvastatin [Zocor] 10 mg PO HS 10/30/18 Spironolactone [Aldactone] 25 mg PO BID 10/30/18 Turmeric Root Extract [Turmeric] 500 mg PO DAILY 10/30/18 metFORMIN HCL [Glucophage] 1,000 mg PO BID 10/30/18 metFORMIN HCL [Glucophage] 500 mg PO 1200 10/30/18 [place]-3 Fatty Acids/Fish Oil [[place]-3 Fish Oil 1,200 mg Sfgl] 500 mg PO DAILY 03/10/19 Bumetanide [Bumex] 1 mg PO DAILY 03/23/20 Liraglutide [[place] 2-Cesar] 1.8 mg SQ DAILY 03/23/20 Losartan [Cozaar] 50 mg PO DAILY 03/23/20 Magnesium Oxide [Mag-Ox] 1,932 mg PO DAILY 03/23/20 Ubidecarenone [Co Q-10] 100 mg PO DAILY 03/23/20 Controlled Substance Measures - Controlled Substance Measures Is patient prescribed a controlled substance at discharge?: No
== END | disposition home or self-care (01) ==
LOC: PNWHC3 12:18
PROVIDERS: ATTEND Specialist
DX: M47.816 Spondylosis without myelopathy or radiculopathy, lumbar region (principal); Z98.890 Other specified postprocedural states; Z98.1 Arthrodesis status; Z79.82 Long term (current) use of aspirin; Z79.1 Long term (current) use of non-steroidal anti-inflammatories (NSAID); Z79.84 Long term (current) use of oral hypoglycemic drugs; Z79.899 Other long term (current) drug therapy
CPT/HCPCS: 99211

== ENCOUNTER 2020-04-11 10:29 | Day surgery (SDC) | payer MEDICARE ==
[2020-04-06 10:10] VITALS: BMI 36.6
[2020-04-11 11:29] LABS: Glucose,Whole Blood 121 mg/dL (75-99)
[2020-04-11] MEDS ORDERED: fentaNYL (PF) 50 MCG/ML 2 ML AMP ONE (11:30)
[2020-04-11] MEDS ORDERED: MIDAZOLAM 2 MG/2 ML VIAL ONE (11:30)
[2020-04-11] MEDS ORDERED: ROPIVACAINE 5MG/ML 20ML VIAL ONE (11:30)
[2020-04-11] MEDS ORDERED: methylPREDNISolone ACETATE 40 MG/ML 1 ML VIAL ONE (11:30)
[2020-04-11 11:32] VITALS: TEMP 98
[2020-04-11] MEDS ORDERED: IV FLUID CONTINUATION 1,000 ML IV ONE (12:08)
--- NOTE | 2020-04-11 12:08 | P.PCN ---
Date of Procedure: 04/11/20 Procedure(s) Performed: PREOPERATIVE DIAGNOSIS: 1-Lumbar Spondylosis with Facet Arthropathy without myelopathy. POSTOPERATIVE DIAGNOSIS: 1- Lumbar Spondylosis with Facet Arthropathy without myelopathy. PROCEDURES : Radiofrequency thermocoagulation bilateral L2 , L3, L4, medial branch, with fluoroscopic guidance (fluoroscopy images available in the radiology department) (to denervate the facet joints at L3-4 ,L4-5 ) ANESTHESIA: Moderate sedation with intravenous versed 2 mg and fentaneyl 100 mcg, and local infiltration with Ropivacaine 0.5 % . EBL: Minimal PROCEDURE INDICATION: The patient with low back pain secondary to lumbar facet arthropathy who had more than 50% relief of her pain with previous diagnostic lumbar medial branch block with bupivacaine. PROCEDURE DESCRIPTION / TECHNIQUE: The patient was seen and identified in the preoperative area. Risks, benefits, complications, including but not limited to risk of infection ,bleeding , allergic reactions to the medications and no complete pain releife , and alternatives were discussed with the patient, the patient agreed to proceed with the procedure and signed the consent. IV was started. Vital signs remained stable throughout the procedure. Patient was taken to the OR and time out was completed. The patient was placed in the prone position on the procedure table. The lumber area was prepped and draped in the usual sterile fashion. . Vital signs were closely monitored during the procedure .IV sedation was used during the procedure to decrease patients anxiety. Using AP and then oblique fluoroscopy, the ``eye of the Sourav dog corresponding to the connection between the superior and transverse articular processes of right L2 , L3, L4, were identified, marked, and localized with 1% lidocaine. Subsequently, a [id number] radiofrequency cannula with a 10-mm active tip was advanced guided by fluoroscopy to each of the``eyes of the Sourav dog at right L2 , L3, L4, Each site then underwent sensory testing at 50 Hz and 0 to 1 volt and motor testing at 2.5 Hz and 0 to 3 volt with local stimulation, but no radicular symptoms down the legs. Thereafter the right L2 , L3 , L4, sites underwent radiofrequency thermocoagulation at 80 degrees celsius for 90 seconds after injecting 0.5 ml of PF Ropivacaine 1ml, then after the thermocoagulation done , 1 ml of the block solution containing Depo-Medrol 20 mg and 3 ml of Ropivacaine 0.5% was injected at the right L2 ,,L3 , L4 , levels after negative aspiration of CSF and blood and with no paresthesias. Cannulas were retracted while injecting lidocaine 1% until the needle is out Then the entire same procedure was repeated for the left side, I did the RFA of the left side medial branch at L2, L3 , L4 At the end of the procedure, the skin was cleansed and bandages were applied. COMPLICATIONS: No acute complications. DISPOSITION / PLANS: The patient was placed in a supine position and transferred to the recovery area in a stable condition for observation and was discharged from the recovery room after meeting discharge criteria. Home discharge instructions given to the patient by the staff. The patient was reexamined prior to discharge. The patient will schedule a follow up in the in in 2-4 weeks. (NOTE = patient had lumbar fusion at L4-5 and L5-S1 )
[2020-04-11 12:11] VITALS: BP 106/69; RESP 16
[2020-04-11 12:22] VITALS: PULSE 92
--- NOTE | 2020-04-11 14:46 | FL ---
Fluoroscopy INDICATION: Pain FINDINGS: Fluoroscopy time: 23 seconds. Images obtained: 6. IMPRESSIONS: 1. Documentation of fluoroscopy.
== END 2020-04-11 12:40 | disposition home or self-care (01) ==
LOC: ORPAIN 10:29
PROVIDERS: ATTEND Specialist
DX: M47.816 Spondylosis without myelopathy or radiculopathy, lumbar region (principal); M51.36 Other intervertebral disc degeneration, lumbar region; Z88.2 Allergy status to sulfonamides
CPT/HCPCS: 81025; 99152; 99153

== ENCOUNTER → 2020-05-03 | Outpatient (CLI) | payer MEDICARE ==
[2020-05-03 10:33] VITALS: BP 112/67; PULSE 109; RESP 16
--- NOTE | 2020-05-03 10:54 | P.PAINPG ---
Subjective Progress Note Date: 05/03/20 This is a follow-up visit for this 39 year old female with a chronic history of severe low back pain, patient diagnosed with postlaminectomy pain syndrome lumbar area ,and lumbar spondylosis with lumbar facet arthropathy, she recently underwent radiofrequency ablation of the medial branch lumbar area at L2, L3, L4 bilaterally (above the fusion level ), done on 04/11/2020. She reports excellent ongoing relief from this procedure, pain is rated as 2/10. Described as an ache. Pain is worse with sitting and standing and better with injections, medications, heat, ice. She continues to walk for exercise. She continues to use [id number] Aleve for pain. she denies any motor or sensory deficit, she denies any fever or night sweats Review of systems is negative for chest pain, shortness of breath, new onset weakness, numbness/tingling, abdominal pain, malaise, fever, night sweats, chills, homicidal or suicidal ideation, or bowel or bladder incontinence. Objective Physical exam: Vitals: Reviewed in EMR GENERAL: Well appearing, in no acute distress PSYCH: Mood and affect is appropriate. Awake, alert, and oriented SKIN: Skin color, texture, turgor normal, no rashes or lesions HEENT: Normocephalic, atraumatic. EOM intact CV: No pedal edema RESP: Respirations are unlabored, no audible wheezing GI: Abdomen non-distended MUSCULOSKELETAL: Bilateral lower extremity strength is normal and symmetric. No atrophy or tone abnormalities are noted. Lumbar spine: Lumbar scar well healed. No pain to palpation over the lumbar spine and paraspinous muscles. Mildly positive for pain with facet loading and back extension/rotation. Extremities: Peripheral joint ROM is full and pain free without obvious instability or laxity in all four extremities. No edema or skin discolorations noted. Gait: Gait is normal NEUR: Bilateral upper and lower extremity coordination and muscle stretch reflexes are physiologic and symmetric. No loss of sensation is noted. Assessment and Plan Plan: Patient had a new MRI of the lumbar spine done recently and it showed that she had multilevel lumbar facet arthropathy and history of previous lumbar laminectomy surgery Assessment and plan=1-lumbar spondylosis with lumbar facet arthropathy without adenopathy. 2-previous lumbar laminectomy and fusion at L5-S1 Patient has ongoing excellent pain relief after RFA of the medial branch lumbar area at L2, L3, L4 ( to target L3-4, L4-5 facet ) bilaterally I provided the patient with an exercise handout for low back stretching and strengthening exercises. PQRS Measure Charge Sheet Measure #130: Documentation of Current Meds in Medical Chart: Patient's medications documented in chart Measure #226: Tobacco Use: Screen & Cessation Intervention: Pt not a tobacco user Measure #111: Pneumonia Vaccination: Pneumococcal vaccine NOT administered or previously given Measure #47: Advance Care Plan: Advance care planning discussed & documented, pt chose/unable to give Measure #412: Opioid Treatment Agreement: No documentation of signed opioid treatment agreement Measure #408: Opioid Therapy Follow-up Evaluation: Patient had NO f/u eval minimum every 3 months during opioid therapy Measure #317: Preventitive Care & Scrn High Bld Press & F/U: Normal blood pressure, f/u not required Measure #128: Body Mass Index (BMI) Screening & Follow-up: BMI documented ABOVE normal parameters - f/u documented Measure #131: Pain Assessment & Follow-up: Pain positive & plan documented, Follow-up as needed Measure #431: Unhealthy Alcohol Use Preventative Care & Scrn: Patient not identified as an unhealthy alcohol user PQRS Measure Charge Sheet PQRS Narrative: Smoking Status Never smoker Pain Intensity [Lower Back] 3 Scale Used Numeric (1 - 10) Hx Alcohol Use (MH) No Home Medications: Ambulatory Orders Aspirin 81 mg PO DAILY 10/30/18 Cholecalciferol [Vitamin D3] 2,000 unit PO DAILY 10/30/18 Cinnamon Bark [Cinnamon] 2,000 mg PO DAILY 10/30/18 Metoprolol Succinate (ER) [Toprol Xl] 50 mg PO DAILY 10/30/18 Multivit with Calcium,Iron,Min [Women's Multivitamin] 1 each PO DAILY 10/30/18 Naproxen Sodium [Aleve] 220 mg PO BID PRN 10/30/18 Potassium Chloride [Klor-Con 20] 40 meq PO TID 10/30/18 Simvastatin [Zocor] 10 mg PO HS 10/30/18 Spironolactone [Aldactone] 25 mg PO BID 10/30/18 Turmeric Root Extract [Turmeric] 500 mg PO DAILY 10/30/18 metFORMIN HCL [Glucophage] 1,000 mg PO BID 10/30/18 metFORMIN HCL [Glucophage] 500 mg PO 1200 10/30/18 [place]-3 Fatty Acids/Fish Oil [[place]-3 Fish Oil 1,200 mg Sfgl] 500 mg PO DAILY 03/10/19 Bumetanide [Bumex] 1 mg PO DAILY 03/23/20 Liraglutide [Victoza 2-Cesar] 1.8 mg SQ DAILY 03/23/20 Losartan [Cozaar] 50 mg PO DAILY 03/23/20 Magnesium Oxide [Mag-Ox] 1,932 mg PO DAILY 03/23/20 Ubidecarenone [Co Q-10] 100 mg PO DAILY 03/23/20 Controlled Substance Measures - Controlled Substance Measures Is patient prescribed a controlled substance at discharge?: No
== END | disposition home or self-care (01) ==
LOC: PNWHC3 09:32
PROVIDERS: ATTEND Anesthesiology
DX: G89.29 Other chronic pain (principal); M96.1 Postlaminectomy syndrome, not elsewhere classified; M47.816 Spondylosis without myelopathy or radiculopathy, lumbar region; Z79.82 Long term (current) use of aspirin; Z79.84 Long term (current) use of oral hypoglycemic drugs; Z79.899 Other long term (current) drug therapy; Z98.1 Arthrodesis status; Z98.890 Other specified postprocedural states
CPT/HCPCS: 99211